=== PATIENT | female | born 1990 | race Caucasian/White ===

== ENCOUNTER 2018-05-15 12:47 | Outpatient (CLI) | payer OTHER | END 2018-05-15 15:25 | disposition home or self-care (01) | LOC: OBT 12:47 → L-D 12:47 → OBT 15:25 | DX: Z36.2 Encounter for other antenatal screening follow-up (principal); O28.0 Abnormal hematological finding on antenatal screening of mother; Z3A.36 36 weeks gestation of pregnancy | CPT/HCPCS: Z7500 ==

== ENCOUNTER 2018-06-05 13:19 | Inpatient (IN) | payer OTHER ==
[~2018-06-05 13:19] MED LIST: PROPOFOL 200 MG INJ
[2018-06-05] MEDS ORDERED: OXYTOCIN 30 UNITS/LR 500 ML IV (14:00)
[2018-06-05] MEDS ORDERED: CARBOPROST 250 MCG INJ IM (14:00)
[2018-06-05] MEDS ORDERED: MISOPROSTOL 200 MCG TAB PR (14:00)
[2018-06-05] MEDS ORDERED: METHYLERGONOVINE 0.2 MG INJ IM (14:00)
[2018-06-05] MEDS: LACTATED RINGER'S 1,000 ML IV ×2 (14:27→17:03)
[2018-06-05 14:37] LABS: ADD MAN DIFF? NO
[2018-06-05 14:39] LABS: BASOPHILS % 0.3 % (0.0-2.0); EOSINOPHILS # 0.1 10^3/ul (0.0-0.5); EOSINOPHILS % 0.4 % (0.0-7.0); HEMATOCRIT 30.8 % (37.0-47.0); HEMOGLOBIN 9.9 g/dl (12.0-16.0); LYMPHOCYTES # 2.3 10^3/ul (0.8-2.9); LYMPHOCYTES % 20.3 % (15.0-51.0); MEAN CORPUSCULAR HEMOGLOBIN 24.6 pg (29.0-33.0); MEAN CORPUSCULAR HGB CONC 32.1 g/dl (32.0-37.0); MEAN CORPUSCULAR VOLUME 76.6 fl (82.0-101.0); MEAN PLATELET VOLUME 12.5 fl (7.4-10.4); MONOCYTE # 0.7 10^3/ul (0.3-0.9); MONOCYTES % 5.9 % (0.0-11.0); NEUTROPHIL # 8.3 10^3/ul (1.6-7.5); NEUTROPHILS % 72.4 % (39.0-77.0); PLATELET COUNT 230 10^3/UL (140-415); RED BLOOD COUNT 4.02 10^6/ul (4.20-5.40); RED CELL DISTRIBUTION WIDTH 14.6 % (11.5-14.5)
[2018-06-05 14:39] LABS: WHITE BLOOD COUNT 11.5 10^3/ul (4.8-10.8)
[2018-06-05 15:08] LABS: PARTIAL THROMBOPLASTIN TIME 28.8 Sec (23.0-35.0); PROTIME 12.2 Sec (11.9-14.9)
[2018-06-05] MEDS ORDERED: morphine SULFATE/PF (10 MG/10 ML) INJ (15:45)
[2018-06-05] MEDS ORDERED: OXYTOCIN 10 UNIT INJ (15:45)
[2018-06-05] MEDS ORDERED: BUPIVACAINE 0.75%/DEXT (SPINAL) 2 ML INJ ×2 (15:47→17:39)
[2018-06-05 16:31] LABS: RAPID PLASMA REAGIN NONREACTIVE (NR)
[2018-06-05] MEDS ORDERED: FAMOTIDINE 20 MG INJ (16:45)
[2018-06-05] MEDS ORDERED: ONDANSETRON 4 MG INJ (16:46)
[2018-06-05] MEDS ORDERED: METOCLOPRAMIDE 10 MG INJ (16:46)
[2018-06-05] MEDS: FAMOTIDINE 20 MG INJ IV (17:19)
[2018-06-05] MEDS: ONDANSETRON 4 MG INJ IV (17:19)
[2018-06-05] MEDS: METOCLOPRAMIDE 10 MG INJ IV (17:19)
[2018-06-05] MEDS ORDERED: MIDAZOLAM 1 MG/ML 2 ML INJ (17:59)
[2018-06-05] MEDS: CEFAZOLIN 2 GM/50 ML (PMX) 50 ML IV (18:02)
[2018-06-05] MEDS ORDERED: PHENYLephrine (100 MCG/ML) 5ML SYG (18:08)
[2018-06-05] MEDS: ALBUMIN HUMAN 5% 250 ML IV ×2 (20:05→20:57)
[2018-06-05] MEDS: OXYTOCIN 30 UNITS/LR 500 ML IV ×3 (20:08→23:38)
[2018-06-05] MEDS ORDERED: ZOLPIDEM 5 MG TAB PO (20:30)
[2018-06-05] MEDS ORDERED: FENTAnyl 50 MCG/ML VIAL IV ×2 (20:30)
[2018-06-05] MEDS ORDERED: NALOXONE (0.4 MG/ML) INJ IV (20:30)
[2018-06-05] MEDS ORDERED: ONDANSETRON 4 MG INJ IV ×2 (20:30)
[2018-06-05] MEDS ORDERED: HYDROmorphONE 1 MG/5 ML IV SYRINGE IV ×3 (20:30)
[2018-06-05] MEDS ORDERED: HYDROmorphONE 0.5 MG/0.5 ML SYG IV (20:30)
[2018-06-05] MEDS ORDERED: ALBUMIN HUMAN 5% 250 ML IV (20:30)
[2018-06-05] MEDS ORDERED: EPHEDrine SULFATE 50 MG/5 ML SYG IV (20:30)
[2018-06-05 20:31] LABS: HEPATITIS B SURFACE ANTIGEN NEGATIVE (NEGATIVE)
[2018-06-05] MEDS: DIPHENHYDRAMINE 50 MG INJ IV (20:32)
[2018-06-05] MEDS: HYDROmorphONE 0.5 MG/0.5 ML SYG IV (20:38)
[2018-06-05] MEDS: ALBUMIN HUMAN 25% 100 ML IV ×2 (21:13→21:21)
[2018-06-05] MEDS: KETOROLAC 30 MG INJ IV (21:25)
[2018-06-05] MEDS: CA CHLORIDE 10% 10 ML SYRINGE IV (21:59)
[2018-06-05] MEDS: AZITHROMYCIN 500MG/NS (PMX) 250 ML IVPB (22:34)
[2018-06-06] MEDS ORDERED: CARBOPROST 250 MCG INJ IM
[2018-06-06] MEDS ORDERED: OXYTOCIN 30 UNITS/LR 500 ML IV
[2018-06-06] MEDS ORDERED: OXYCODONE/ACETAMINOPHEN (5/325) TAB PO ×2
[2018-06-06] MEDS ORDERED: CLINDAMYCIN 300 MG CAP PO
[2018-06-06] MEDS ORDERED: MISOPROSTOL 200 MCG TAB PR
[2018-06-06] MEDS ORDERED: HYDROCODONE/APAP (5/325) TAB PO ×3
[2018-06-06] MEDS ORDERED: METHYLERGONOVINE 0.2 MG INJ IM
[2018-06-06] MEDS: CEFAZOLIN 2 GM/50 ML (PMX) 50 ML IVPB ×4 (01:23→21:57)
[2018-06-06] MEDS: CLINDAMYCIN 300 MG CAP PO ×4 (01:23→18:06)
[2018-06-06] MEDS: DIPHENHYDRAMINE 50 MG INJ IV ×3 (02:36→17:02)
[2018-06-06] MEDS: LACTATED RINGER'S 1,000 ML IV ×7 (03:10→23:38)
[2018-06-06] MEDS: KETOROLAC 30 MG INJ IV ×2 (06:33→13:40)
[2018-06-06 08:29] LABS: ADD MAN DIFF? NO
[2018-06-06 08:34] LABS: BASOPHILS % 0.1 % (0.0-2.0); EOSINOPHILS % 0.1 % (0.0-7.0); HEMATOCRIT 24.6 % (37.0-47.0); HEMOGLOBIN 7.9 g/dl (12.0-16.0); LYMPHOCYTES # 1.9 10^3/ul (0.8-2.9); LYMPHOCYTES % 14.1 % (15.0-51.0); MEAN CORPUSCULAR HEMOGLOBIN 24.8 pg (29.0-33.0); MEAN CORPUSCULAR HGB CONC 32.1 g/dl (32.0-37.0); MEAN CORPUSCULAR VOLUME 77.1 fl (82.0-101.0); MEAN PLATELET VOLUME 12.9 fl (7.4-10.4); MONOCYTE # 0.7 10^3/ul (0.3-0.9); MONOCYTES % 5.2 % (0.0-11.0); NEUTROPHIL # 10.9 10^3/ul (1.6-7.5); NEUTROPHILS % 80.1 % (39.0-77.0); PLATELET COUNT 174 10^3/UL (140-415); RED BLOOD COUNT 3.19 10^6/ul (4.20-5.40); RED CELL DISTRIBUTION WIDTH 14.4 % (11.5-14.5)
[2018-06-06 08:34] LABS: WHITE BLOOD COUNT 13.6 10^3/ul (4.8-10.8)
[2018-06-06] MEDS: HYDROmorphONE 0.5 MG/0.5 ML SYG IV (10:24)
[2018-06-06] MEDS: IBUPROFEN 800 MG TAB PO (21:56)
[2018-06-06] MEDS: BISACODYL 10 MG SUPP PR (21:57)
[2018-06-07] MEDS: CLINDAMYCIN 300 MG CAP PO ×5 (01:46→23:50)
[2018-06-07] MEDS: LACTATED RINGER'S 1,000 ML IV ×3 (05:42→19:20)
[2018-06-07] MEDS: IBUPROFEN 800 MG TAB PO ×3 (05:42→21:47)
[2018-06-07] MEDS: CEFAZOLIN 2 GM/50 ML (PMX) 50 ML IVPB ×2 (05:43→14:10)
[2018-06-07 07:18] LABS: ADD MAN DIFF? NO
[2018-06-07 07:21] LABS: WHITE BLOOD COUNT 16.2 10^3/ul (4.8-10.8)
[2018-06-07 07:21] LABS: BASOPHILS % 0.1 % (0.0-2.0); EOSINOPHILS # 0.1 10^3/ul (0.0-0.5); EOSINOPHILS % 0.4 % (0.0-7.0); HEMATOCRIT 26.2 % (37.0-47.0); HEMOGLOBIN 8.4 g/dl (12.0-16.0); LYMPHOCYTES # 2.3 10^3/ul (0.8-2.9); LYMPHOCYTES % 14.3 % (15.0-51.0); MEAN CORPUSCULAR HEMOGLOBIN 24.6 pg (29.0-33.0); MEAN CORPUSCULAR HGB CONC 32.1 g/dl (32.0-37.0); MEAN CORPUSCULAR VOLUME 76.8 fl (82.0-101.0); MEAN PLATELET VOLUME 12.2 fl (7.4-10.4); MONOCYTES % 6.1 % (0.0-11.0); NEUTROPHIL # 12.7 10^3/ul (1.6-7.5); NEUTROPHILS % 78.6 % (39.0-77.0); PLATELET COUNT 210 10^3/UL (140-415); RED BLOOD COUNT 3.41 10^6/ul (4.20-5.40); RED CELL DISTRIBUTION WIDTH 14.7 % (11.5-14.5)
[2018-06-07] MEDS: HYDROCODONE/APAP (5/325) TAB PO (12:04)
[2018-06-07] MEDS: CIPROFLOXACIN 500 MG TAB PO (17:43)
[2018-06-08] MEDS: IBUPROFEN 800 MG TAB PO ×2 (05:45→14:16)
[2018-06-08] MEDS: CLINDAMYCIN 300 MG CAP PO ×3 (05:45→17:44)
[2018-06-08] MEDS: CIPROFLOXACIN 500 MG TAB PO ×2 (05:45→17:44)
[2018-06-08 08:23] LABS: ADD MAN DIFF? NO
[2018-06-08 08:28] LABS: WHITE BLOOD COUNT 14.3 10^3/ul (4.8-10.8)
[2018-06-08 08:28] LABS: BASOPHIL # 0.1 10^3/ul (0.0-0.1); BASOPHILS % 0.3 % (0.0-2.0); EOSINOPHILS # 0.3 10^3/ul (0.0-0.5); EOSINOPHILS % 2.4 % (0.0-7.0); HEMATOCRIT 27.9 % (37.0-47.0); HEMOGLOBIN 8.7 g/dl (12.0-16.0); LYMPHOCYTES % 20.9 % (15.0-51.0); MEAN CORPUSCULAR HEMOGLOBIN 24.4 pg (29.0-33.0); MEAN CORPUSCULAR HGB CONC 31.2 g/dl (32.0-37.0); MEAN CORPUSCULAR VOLUME 78.4 fl (82.0-101.0); MEAN PLATELET VOLUME 12.1 fl (7.4-10.4); MONOCYTE # 0.8 10^3/ul (0.3-0.9); MONOCYTES % 5.8 % (0.0-11.0); NEUTROPHILS % 69.9 % (39.0-77.0); PLATELET COUNT 223 10^3/UL (140-415); RED BLOOD COUNT 3.56 10^6/ul (4.20-5.40); RED CELL DISTRIBUTION WIDTH 14.6 % (11.5-14.5)
[2018-06-08] MEDS: DIPHTH/TET/ACEL PERTUSS (ADULT) 0.5 ML VIAL IM* (09:06)
[2018-06-08] MEDS: MEASLES,MUMPS,RUBELLA VACCINE INJ SC* (09:07)
== END 2018-06-08 19:35 | disposition home or self-care (01) | DRG 788 ==
LOC: L-D 13:19 → PP1 23:50
PROVIDERS: Obstetrics & Gynecology
PROC: 10D00Z1 Extraction of Products of Conception, Low, Open Approach (ICD-10-PCS; principal; 2018-06-05 15:30)
DX: O34.211 Maternal care for low transverse scar from previous cesarean delivery (principal); Z3A.39 39 weeks gestation of pregnancy; Z37.0 Single live birth
CPT/HCPCS: 85025; 85610; 85730; 86592; 86850; 86900; 86901; 87340; 90715; 99464